=== PATIENT | male | born 1950 | race Caucasian/White ===

== ENCOUNTER 2017-05-27 11:19 | Emergency (ER) | payer OTHER, MEDICARE ==
[~2017-05-27] VITALS: Ht 177.8 cm; Wt 36.4 kg
[2017-05-27 11:24] VITALS: BP 147/80; PULSE 78; RESP 16; O2SAT 95
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
[2017-05-27] MEDS ORDERED: HYDROmorphone 0.5 mg/0.5 mL iSecure Syringe IVPUSH PRN (12:30)
[2017-05-27] MEDS ORDERED: Ondansetron 2 mg/mL 2 mL Inj IVPUSH PRN (12:30)
[2017-05-27 12:54] LABS: BASOPHILS % (AUTO) 0.3 % (0-3); EOSINOPHILS % (AUTO) 0.7 % (0-5); Mean Corpuscular Hemoglobin 30.3 pg (27.0-35.0); NEUTROPHILS % (AUTO) 67.8 % (40-74); Platelet Count 237 bil/L (150-400)
[2017-05-27 13:09] LABS: INR 0.96 ratio
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
[2017-05-27 14:09] VITALS: BP 119/71; PULSE 53; RESP 16; O2SAT 99
[2017-05-27 14:10] VITALS: BP 147/80; PULSE 78; RESP 16; O2SAT 95
== END 2017-05-27 14:19 | disposition home or self-care (01) ==
LOC: SED 11:19 → EDBD 11:19 → SED 14:19
DX: M54.2 Cervicalgia (principal); R10.13 Epigastric pain; M54.5 Low back pain; V67.5XXA Driver of heavy transport vehicle injured in collision with fixed or stationary object in traffic accident, initial encounter; Y93.89 Activity, other specified; Y92.410 Unspecified street and highway as the place of occurrence of the external cause; Y99.8 Other external cause status; Z88.8 Allergy status to other drugs, medicaments and biological substances
CPT/HCPCS: 36415; 70450; 71260; 72125; 74177; 80053; 85025; 85610; 85730; 93005; 96374; 96375; 99285; J1170; J2405; Q9967